=== PATIENT | male | born 1955 | race Caucasian/White ===

== ENCOUNTER 2017-08-07 18:08 | Emergency (ER) | payer SELFPAY ==
[~2017-08-07] VITALS: Ht 188 cm; Wt 77.0 kg
[2017-08-07 18:38] VITALS: TEMP 36.8; Ht 188 cm; Wt 77.0 kg
--- NOTE | 2017-08-07 19:28 | EMERGENCY ROOM VISIT NOTE ---
History First contact with patient: 19:22 Chief Complaint: PAIN (GENERALIZED) Stated Complaint: PAIN DUE TO HEP C History of Present Illness Patient only speaks [place] and is here with friend who is acting as used equipment sales representative The patient is a 62 year old male who presents to the Emergency Room with complaints of intermittent abdominal pain for last 3 months, which has worsened and persistent over the last 2 days. Pain described as a dull ache in RUQ which waxes and wanes, and reaches 8/10 in severity, with radiation to the right flank. There is no known trigger and pain seems unrelated to activity or PO intake, although patient has had diminished PO intake in the last 24 hours. Patient denies N/V, diarrhea or constipation. Last night and today, patient noted small amount of BRB mixed in with stool. No previous history of rectal bleeding. He went to urgent care 1 week ago, and was prescribed Vicodin, although this has not improved symptoms, and he has now completed his prescribed amount. Patient Known hep C for last 30 years, but denies any lab work, imaging or GI follow up since leaving [place] in 2003. He is not on any medications. He states he has had some abdominal bloating, and though he has had recent bleeding from rectum, he denies other bleeding or bruising, no scleral icterus or jaundice, and states he has gained 3lb in in last month. He states he is eating well and drinking well. Patient states no alcohol use. He smokes 3 cigarettes daily. He otherwise denies fevers/chills, headaches, CP, palpitations, dyspnea, lower extremity swelling or rashes. He is tolerating diet, ambulating without weakness or tingling, and voiding without issues. Source of History: friend History Limited By: language Onset: 2 days ago Position: abdomen (RUQ) Symptom Intensity: moderate Quality: ache Timing: waxes/wanes Associated Symptoms: + abdominal pain, + back pain Review of Systems See HPI for pertinent positives and negatives. A total of ten systems were reviewed and were otherwise negative. Social History Smoking Status: Current Every Day Smoker Smokeless Tobacco Use: No Alcohol Use: none Drug Use: none Current/Historical Medications Scheduled Polyethylene Glycol 3350 (Miralax), 17 GM PO DAILY Scheduled PRN Oxycodone/Acetaminophen 5MG/325MG (Percocet 5MG/325MG), 1-2 TAB PO Q4H PRN for Pain Physical Exam Vital Signs Date Time Temp Pulse Resp B/P (MAP) Pulse Ox O2 Delivery O2 Flow Rate FiO2 08/07/17 23:31 103/66 08/07/17 23:28 57 13 95 08/07/17 23:13 64 17 96 08/07/17 23:01 105/63 08/07/17 22:58 66 17 96 08/07/17 22:43 64 19 97 08/07/17 22:31 103/60 08/07/17 22:28 64 25 96 08/07/17 22:13 61 14 94 08/07/17 21:43 65 14 95 08/07/17 21:38 68 96 Room Air 08/07/17 21:31 103/63 08/07/17 21:23 70 19 96 08/07/17 21:08 66 13 93 08/07/17 21:01 118/74 08/07/17 20:53 70 16 94 08/07/17 20:52 108/69 08/07/17 18:38 36.8 77 20 123/69 95 Room Air Physical Exam GENERAL: alert, well appearing, thin, sitting in bed, no acute distress, non- toxic HEAD: Normocephalic, atraumatic. No sinus tenderness. EYES: PERRL, EOMI, mild scleral icterus, normal conjunctiva OROPHARYNX: No exudate, no erythema. Lips, buccal mucosa, and tongue normal and mucous membranes are dry NECK: Supple, no nuchal rigidity, no adenopathy, non-tender LUNGS: No reproducible chest tenderness. Clear to auscultation. Normal chest wall mechanics, good air entry. No crepitations, crackles, or wheezes HEART: RRR, S1 and S2 normal, no murmurs appreciated ABDOMEN: Soft, tenderness in RUQ, normo-active bowel sounds, no masses, no rebound or guarding, Berkowitz's negative. BACK: Back is symmetrical on inspection, no deformities, no midline tenderness, no CVA tenderness. SKIN: Warm, pink, dry. No erythema, rashes, or bruising. EXTREMITIES: Grossly normal. Moving all 4 limbs, strength 5/5. No pitting edema. Calves non tender. NEURO: Alert, Ox3. No focal deficits. Normal sensorium, cranial nerves II-XII grossly intact, normal speech. PSYCH: Mood and affect appropriate. Medical Decision & Procedures ER Provider Diagnostic Interpretation: CHEST ONE VIEW PORTABLE HISTORY: 62 years-old Male Pt c/o diffuse abd pain acute generalized abdominal pain COMPARISON: None available TECHNIQUE: Portable AP view of the chest FINDINGS: Cardiomediastinal and hilar silhouettes are within normal limits. No pneumothorax, pleural effusion, focal airspace consolidation or overt pulmonary edema. Bones of the chest appear grossly intact. IMPRESSION: No acute process. ABDOMEN AND PELVIS CT WITH IV CONTRAST CT DOSE: 413.45 mGy.cm HISTORY: Acute generalized abdominal pain with history of hepatitis C known Hep C, worsening abdo pain TECHNIQUE: Multiaxial CT images of the abdomen and pelvis were performed following the use of intravenous contrast. A dose lowering technique was utilized adhering to the principles of ALARA. COMPARISON STUDY: None. FINDINGS: Mild dependent subsegmental bibasilar atelectasis. There is no pneumatosis or pneumoperitoneum identified. Imaged inferior cardiac chambers are unremarkable. The liver, spleen, gallbladder, pancreas and adrenal glands are unremarkable. Pancreatic duct measures within the upper limits of normal at 3 mm. Common bile duct is normal in caliber. Subcentimeter low attenuating lesions of the kidneys are too small to characterize, largest of which measures 7 mm within the superior pole right kidney suggesting renal cysts. Ureters appear unremarkable. Urinary bladder is within normal limits. Central calcifications are seen within the prostate. Aorta is normal in both course and caliber. Mild degree of mixed plaquing is noted. No bulky adenopathy identified. There is no bowel obstruction or focal bowel wall thickening identified. The appendix appears normal. Soft tissues are unremarkable. Bones appear intact. Moderate to severe intervertebral disc space narrowing noted at L5-S1. IMPRESSION: 1. No acute intra-abdominal or intrapelvic abnormality identified. 2. Normal appendix. Laboratory Results 08/07/17 20:49 Red Blood Count 4.55, Mean Corpuscular Volume 93.0, Mean Corpuscular Hemoglobin 31.6, Mean Corpuscular Hemoglobin Concent 34.0, Mean Platelet Volume 9.2, Neutrophils (%) (Auto) 48.6, Lymphocytes (%) (Auto) 36.6, Monocytes (%) (Auto) 11.6, Eosinophils (%) (Auto) 2.5, Basophils (%) (Auto) 0.3, Neutrophils # (Auto ) 3.53, Lymphocytes # (Auto) 2.65, Monocytes # (Auto) 0.84, Eosinophils # (Auto ) 0.18, Basophils # (Auto) 0.02 08/07/17 20:49 Test 08/07/17 20:49 White Blood Count 7.25 K/uL (4.8-10.8) Red Blood Count 4.55 M/uL (4.7-6.1) Hemoglobin 14.4 g/dL (14.0-18.0) Hematocrit 42.3 % (42-52) Mean Corpuscular Volume 93.0 fL (80-100) Mean Corpuscular Hemoglobin 31.6 pg (25-34) Mean Corpuscular Hemoglobin Concent 34.0 g/dl (32-36) Platelet Count 129 K/uL (130-400) Mean Platelet Volume 9.2 fL (7.4-10.4) Neutrophils (%) (Auto) 48.6 % Lymphocytes (%) (Auto) 36.6 % Monocytes (%) (Auto) 11.6 % Eosinophils (%) (Auto) 2.5 % Basophils (%) (Auto) 0.3 % Neutrophils # (Auto) 3.53 K/uL (1.4-6.5) Lymphocytes # (Auto) 2.65 K/uL (1.2-3.4) Monocytes # (Auto) 0.84 K/uL (0.11-0.59) Eosinophils # (Auto) 0.18 K/uL (0-0.5) Basophils # (Auto) 0.02 K/uL (0-0.2) RDW Standard Deviation 47.3 fL (36.4-46.3) RDW Coefficient of Variation 13.9 % (11.5-14.5) Immature Granulocyte % (Auto) 0.4 % Immature Granulocyte # (Auto) 0.03 K/uL (0.00-0.02) Anion Gap 8.0 mmol/L (3-11) Est Creatinine Clear Calc Drug Dose 103.0 ml/min Estimated GFR () 110.4 Estimated GFR (Non- 95.3 BUN/Creatinine Ratio 26.4 (10-20) Calcium Level 8.3 mg/dl (8.5-10.1) Total Bilirubin 0.4 mg/dl (0.2-1) Aspartate Amino Transf (AST/SGOT) 23 U/L (15-37) Alanine Aminotransferase (ALT/SGPT) 27 U/L (12-78) Alkaline Phosphatase 50 U/L (45-117) Ammonia 42.1 umol/L (11-32) Total Protein 6.8 gm/dl (6.4-8.2) Albumin 3.6 gm/dl (3.4-5.0) Globulin 3.2 gm/dl (2.5-4.0) Albumin/Globulin Ratio 1.1 (0.9-2) Lipase 170 U/L (73-393) Medications Administered Medications (Trade) Dose Ordered Sig/Mercedes Route Start Time Stop Time Status Last Admin Dose Admin Sodium Chloride 1,000 ml @ 100 mls/hr Q10H IV 08/07/17 20:00 08/08/17 01:00 DC 08/07/17 20:45 100 MLS/HR Hydromorphone HCl (Dilaudid Inj) 1 mg NOW STAT IV 08/07/17 20:51 08/07/17 20:53 DC 08/07/17 21:12 1 MG Metoclopramide HCl (Reglan Inj) 10 mg NOW STAT IV. 08/07/17 20:51 08/07/17 20:53 DC 08/07/17 21:06 10 MG Lactulose (Chronulac Syrup) 30 gm NOW STAT PO 08/07/17 22:24 08/07/17 22:25 DC 08/07/17 23:09 30 GM Oxycodone/ Acetaminophen (Percocet 5/ 325MG Home Pack) 1 homepack UD ONCE PO 08/07/17 23:30 08/07/17 23:31 DC 08/07/17 23:33 1 HOMEPACK ED Course 19:27 Patient assessed via thorough clinical history and physical exam 19:46 Labs and imaging ordered 20:10 Patient reassessed. LOLA performed 20:51 Dilaudid and Reglan ordered 21:22 Patient reassessed. Feeling a little better 22:24 Lactulose ordered Medical Decision The patient's care and disposition was discussed with Dr. Monroe, Attending ED Physician. Prior records/ancillary studies reviewed. Triage Nursing notes reviewed. Additional history obtained from patient's friends. The patient's history was concerning for abdominal pain on a background of hepatitis C. The patient was evaluated in room C4. A complete history and physical exam was performed. Etiologies such as appendicitis, diverticulitis, PUD, biliary pathology, UTI, pancreatitis, obstruction, mesenteric ischemia, aortic pathology, infections, inflammatory bowel disease, renal colic, as well as others were entertained. Patient was given Iv Dilaudid 1mg and IV metoclopramide 10mg for symptom relief. Additionally, 1L of IV normal saline was given to improve hydration status. On reassessment the patient felt better. Lab work was performed. CBC, BMP, LFT, and lipase were all within normal limits. Ammonia is mildly elevated. FOBT negative. CXR reported no acute process. CT showed no acute intra-abdominal or intrapelvic abnormality, but significant stool burden. Likely diagnosis is constipation. As such, patient prescribed lactulose and advised for conservative management with Tylenol or Motrin for pain relief and increased oral intake to improve hydration status. Patient understands and agreeable with care plan. Patient discharged home well. Outpatient prescription management: Was also prescribed short supply of Percocet PRN discomfort Referral: The patient was advised to establish with primary care physician as well as follow-up in 2 to 3 days for a recheck of the current condition. Medication Reconcilliation Current Medication List: was personally reviewed by pa Blood Pressure Screening Patient's blood pressure: Normal blood pressure Impression Primary Impression: Constipation Additional Impression: Hepatitis C Departure Information Prescriptions Oxycodone/Acetaminophen 5MG/325MG (PERCOCET 5MG/325MG) Tab 1-2 TAB PO Q4H Y for Pain, #14 TAB Prov: Ko Monroe MD 08/07/17 Polyethylene Glycol 3350 (MIRALAX) 1 Pow Pow 17 GM PO DAILY, #527 GM Prov: Alka. Cross MD 08/07/17 Referrals No Doctor, Assigned (PCP) Patient Instructions My [facility] Resident Tracking Resident Involvement: Resident Care Provided Care Provided: Adult Hospital Medicine Problem Qualifiers
[2017-08-07] MEDS ORDERED: SODIUM CHLORIDE 0.9% 1000ML 1,000 ML IV SCH (20:00)
[2017-08-07] MEDS ORDERED: OPTIRAY 320 IV PRN (20:15)
[2017-08-07] MEDS ORDERED: HYDROmorphone INJ 1 MG/ML SYR IV STA (20:51)
[2017-08-07] MEDS ORDERED: METOCLOPRAMIDE HCL INJ 5 MG/ML 2 ML VIAL IV. STA (20:51)
[2017-08-07 20:58] LABS: BASO % 0.3 %; BASO ABS # 0.02 K/uL (0-0.2); EOS % 2.5 %; EOS ABS # 0.18 K/uL (0-0.5); HEMATOCRIT 42.3 % (42-52); HEMOGLOBIN 14.4 g/dL (14.0-18.0); IG# 0.03 K/uL (0.00-0.02); LYMPH % 36.6 %; LYMPH ABS # 2.65 K/uL (1.2-3.4); MEAN CORPUSCULAR HEMOGLOBIN 31.6 pg (25-34); MEAN PLATELET VOLUME 9.2 fL (7.4-10.4); MONO % 11.6 %; MONO ABS # 0.84 K/uL (0.11-0.59); NEUT % 48.6 %; NEUT ABS # 3.53 K/uL (1.4-6.5); PLATELET COUNT 129 K/uL (130-400); RED CELL DISTRIBUTION WIDTH CV 13.9 % (11.5-14.5); RED CELL DISTRIBUTION WIDTH SD 47.3 fL (36.4-46.3); WHITE BLOOD COUNT 7.25 K/uL (4.8-10.8)
[2017-08-07 21:18] LABS: ALBUMIN 3.6 gm/dl (3.4-5.0); CALCIUM 8.3 mg/dl (8.5-10.1); CREATININE 0.81 mg/dl (0.60-1.40); POTASSIUM 3.9 mmol/L (3.5-5.1)
[2017-08-07 21:21] LABS: TOTAL PROTEIN 6.8 gm/dl (6.4-8.2)
--- NOTE | 2017-08-07 21:32 | DIAGNOSTIC IMAGING REPORT ---
CHEST ONE VIEW PORTABLE HISTORY: 62 years-old Male Pt c/o diffuse abd pain acute generalized abdominal pain COMPARISON: None available TECHNIQUE: Portable AP view of the chest FINDINGS: Cardiomediastinal and hilar silhouettes are within normal limits. No pneumothorax, pleural effusion, focal airspace consolidation or overt pulmonary edema. Bones of the chest appear grossly intact. IMPRESSION: No acute process. The above report was generated using voice recognition software. It may contain grammatical, syntax or spelling errors. Electronically signed by: Percy Driscoll M.D. 08/07/2017 9:30 PM Dictated Date/Time: 08/07/2017 9:29 PM
--- NOTE | 2017-08-07 22:19 | DIAGNOSTIC IMAGING REPORT ---
ABDOMEN AND PELVIS CT WITH IV CONTRAST CT DOSE: 413.45 mGy.cm HISTORY: Acute generalized abdominal pain with history of hepatitis C known Hep C, worsening abdo pain TECHNIQUE: Multiaxial CT images of the abdomen and pelvis were performed following the use of intravenous contrast. A dose lowering technique was utilized adhering to the principles of ALARA. COMPARISON STUDY: None. FINDINGS: Mild dependent subsegmental bibasilar atelectasis. There is no pneumatosis or pneumoperitoneum identified. Imaged inferior cardiac chambers are unremarkable. The liver, spleen, gallbladder, pancreas and adrenal glands are unremarkable. Pancreatic duct measures within the upper limits of normal at 3 mm. Common bile duct is normal in caliber. Subcentimeter low attenuating lesions of the kidneys are too small to characterize, largest of which measures 7 mm within the superior pole right kidney suggesting renal cysts. Ureters appear unremarkable. Urinary bladder is within normal limits. Central calcifications are seen within the prostate. Aorta is normal in both course and caliber. Mild degree of mixed plaquing is noted. No bulky adenopathy identified. There is no bowel obstruction or focal bowel wall thickening identified. The appendix appears normal. Soft tissues are unremarkable. Bones appear intact. Moderate to severe intervertebral disc space narrowing noted at L5-S1. IMPRESSION: 1. No acute intra-abdominal or intrapelvic abnormality identified. 2. Normal appendix. Electronically signed by: Percy Driscoll M.D. 08/07/2017 10:18 PM Dictated Date/Time: 08/07/2017 10:09 PM
[2017-08-07] MEDS ORDERED: LACTULOSE SYRUP 20 GM/30 ML UDC PO STA ×2 (22:23→22:24)
[2017-08-07] MEDS ORDERED: POLY335019 PO (22:41)
[2017-08-07] MEDS ORDERED: OXYC-57 PO (23:21)
[2017-08-07 23:28] VITALS: PULSE 57; O2SAT 95
[2017-08-07] MEDS ORDERED: PERCOCET HOME PACK PO ONE (23:30)
[2017-08-07 23:31] VITALS: BP 103/66
== END 2017-08-07 23:40 | disposition home or self-care (01) ==
LOC: C.EDB 18:10 → C.EDC 23:40
DX: R10.11 Right upper quadrant pain (principal); B18.2 Chronic viral hepatitis C; K92.1 Melena; R14.0 Abdominal distension (gaseous); F17.200 Nicotine dependence, unspecified, uncomplicated